=== PATIENT | male | born 1985 | race Caucasian/White ===

== ENCOUNTER 2019-04-07 11:58 | Emergency (ER) | payer SELFPAY ==
[2019-04-07 12:22] VITALS: BP 123/77
--- NOTE | 2019-04-07 12:30 | UC ---
Upper Extremity HPI - HPI Summary HPI Summary: 33 year old male with no PMH, no prior elbow injuries, surgeries, presents with right elbow pain. The patient states while moving a large stove through a doorway with a lip, having to push and lift up the stove, he heard a "pop" with an "injured" feeling. mild pain. no swelling. Noted deformity to biceps. NO numbnes, tingling, able to move fingers well. - History of Current Complaint Chief Complaint: UCWounds Stated Complaint: rt arm injury (WC) Time Seen by Provider: 04/07/19 12:22 Hx Obtained From: Patient ?: No Onset/Duration: Sudden Onset, Lasting Hours - 10:30am Severity Currently: None Pain Intensity: 0 Pain Scale Used: 0-10 Numeric Location Of Pain: Is Discrete @ - riht elbow Associated Signs And Symptoms: Negative: Swelling, Redness, Bruising, Fever, Weakness, Numbness/Tingling - Allergies/Home Medications Allergies/Adverse Reactions: Allergies Allergy/AdvReac Type Severity Reaction Status Date / Time No Known Allergies Allergy Verified 04/07/19 12:22 Home Medications: Home Medications NK [No Home Medications Reported] 04/07/19 [History Confirmed 04/07/19] PMH/Surg Hx/FS Hx/Imm Hx Previously Healthy: Yes - Surgical History Surgical History: Yes Surgery Procedure, Year, and Place: tendon repair left index finger - Family History Known Family History: Positive: Non-Contributory - Social History Occupation: Employed Full-time Alcohol Use: Daily Substance Use Type: None Smoking Status (MU): Light Every Day Tobacco Smoker Review of Systems All Other Systems Reviewed And Are Negative: Yes Constitutional: Positive: Negative Skin: Positive: Other - deformity in muscle noted Gastrointestinal: Positive: Negative Genitourinary: Positive: Negative Motor: Positive: Negative Neurovascular: Positive: Negative. Negative: Decreased Sensation, Decreased Pulses Musculoskeletal: Negative: Arthralgia, Decreased ROM, Edema, Myalgia Neurological: Positive: Negative Is Patient Immunocompromised?: No Physical Exam Triage Information Reviewed: Yes Appearance: Well-Appearing, No Pain Distress, Well-Nourished Vital Signs: Initial Vital Signs Temp 99.8 F 04/07/19 12:17 Pulse 74 04/07/19 12:17 Resp 20 04/07/19 12:17 BP 123/77 04/07/19 12:17 Pulse Ox 99 04/07/19 12:17 Vital Signs Reviewed: Yes Eyes: Positive: Conjunctiva Clear Musculoskeletal: Positive: Other: - patient unwilling to test elbow flexion due to injury. Deformity noted at distal biceps with retraction proximally of biceps. moderate tenderness at distal portion of biceps and at insertion point mid-forearm. R And D Lab Technician strength = b/l, SITLT distal to biceps. rad/ ulnar pulses 2+ b/l. full PROM supination/ pronation R arm, no TTP over right shoulder, elbow, wrist, fingers. Neurological: Positive: Abnormal Muscle Tone - firm, retracted biceps, Other: - patient unwilling to test elbow flexion due to injury. Deformity noted at distal biceps with retraction proximally of biceps. moderate tenderness at distal portion of biceps and at insertion point mid-forearm. Psychological Exam: Normal Psychological: Positive: Normal Response To Family Skin Exam: Normal Skin: Positive: Other - no ecchymossi, no erythema. Upper Extremity Course/Dx - Course Course Of Treatment: X-ray negative for fx/ avulsion Likely distal Biceps rupture: - Call Dr. Lloyd office to set up appointment for tomorrow - Ice to decrease swelling as much as possible today - Rest- sling at all times, may remove to do shoulder motions as shown. - Motrin/ Tylenol as need for pain - If numbness, tingling, decreased ROM, please return to ER. - Differential Dx/Diagnosis Differential Diagnosis/HQI/PQRI: Fracture (Open), Fracture (Closed), Localized Burn Provider Diagnosis: Biceps rupture, distal Discharge ED - Sign-Out/Discharge Documenting (check all that apply): Patient Departure All imaging exams completed and their final reports reviewed: Yes - Discharge Plan Condition: Good Disposition: HOME Patient Education Materials: Tendon Rupture (ED) Forms: *Work Release Referrals: No Primary Care Phys,NOPCP [Primary Care Provider] - [facility] [Outside] Additional Instructions: Likely distal Biceps rupture: - Call Dr. Lloyd office to set up appointment for tomorrow - Ice to decrease swelling as much as possible today - Rest- sling at all times, may remove to do shoulder motions as shown. - Motrin/ Tylenol as need for pain - If numbness, tingling, decreased ROM, please return to ER. - Billing Disposition and Condition Condition: GOOD Disposition: Home
== END 2019-04-07 13:10 | disposition home or self-care (01) ==
LOC: UCEAST 11:58
DX: S46.211A Strain of muscle, fascia and tendon of other parts of biceps, right arm, initial encounter (principal); F17.200 Nicotine dependence, unspecified, uncomplicated; X50.0XXA Overexertion from strenuous movement or load, initial encounter; Y93.89 Activity, other specified; Y92.9 Unspecified place or not applicable
CPT/HCPCS: 99202; G0463